=== PATIENT | male | born 1940 | race Caucasian/White ===

== ENCOUNTER 2021-04-17 13:19 | Observation (INO) ==
[2021-04-17] MEDS ORDERED: SODIUM CHLORIDE 0.9% 1,000 ML IV STA (13:31)
[2021-04-17] MEDS ORDERED: PANTOPRAZOLE 40 MG VIAL IV STA (13:31)
[2021-04-17 13:43] LABS: Basophils # 0.1 10*3/uL (0.0-0.2); Basophils % 0.8 % (0.0-0.8); Eosinophils # 0.1 10*3/uL (0.0-0.87); Eosinophils % 1.2 % (0.00-10.9); Hematocrit 44.7 VOL% (42.0-52.0); Hemoglobin 15.3 GM/DL (14.0-18.0); Immature Granulocytes % 0.2 %; Immature Granulocytes Absolute 0.02 #; Lymphocytes # 3.8 10*3/uL (1.4-4.0); Lymphocytes % 37.3 % (21.2-54.2); Mean Corpuscular HGB Conc 34.2 GM/DL (32-36); Mean Corpuscular Volume 90.9 FL (87-102); Mean Platelet Volume 10.5 FL (9.6-12.0); Neutrophils % 50.5 % (38.7-73.9); Platelet Count 179 T/CUMM (130-400); Red Blood Count 4.92 MC/CUMM (3.8-5.5); Red Cell Distribution Width 12.7 % (9.3-17.3); White Blood Count 10.3 T/CUMM (4-12)
[2021-04-17 13:53] LABS: INR 1.1; PT Patient Result 12.2 SECS (10.5-12.0)
[2021-04-17 14:09] LABS: Bilirubin,Total 0.7 MG/DL (0.20-1.00); Calcium 9.2 MG/DL (8.5-10.1); Osmolality,Calculated 278.4 MOS/KG (273-304); Potassium 3.3 MMOL/L (3.5-5.1)
[2021-04-17] MEDS ORDERED: POTASSIUM CHLORIDE 20 MEQ TABLET PO STA (15:05)
[2021-04-17] MEDS ORDERED: ONDANSETRON 4 MG/2 ML VIAL IV PRN (15:28)
[2021-04-17] MEDS ORDERED: GLUCAGON 1 MG VIAL IM PRN (15:28)
[2021-04-17] MEDS ORDERED: DEXTROSE 10% 250 ML BAG IV PRN (15:28)
[2021-04-17] MEDS: SODIUM CHLORIDE 0.9% 1,000 ML IV SCH (16:00)
[2021-04-17 16:56] LABS: Hemoglobin 13.7 GM/DL (14.0-18.0)
[2021-04-17] MEDS: PANTOPRAZOLE 40 MG TABLET PO SCH (20:54)
[2021-04-17 21:25] LABS: Hematocrit 38.6 VOL% (42.0-52.0); Hemoglobin 13.2 GM/DL (14.0-18.0)
[2021-04-18] MEDS: SODIUM CHLORIDE 0.9% 1,000 ML IV SCH (01:00)
[2021-04-18 05:23] LABS: Hematocrit 39.9 VOL% (42.0-52.0); Hemoglobin 13.4 GM/DL (14.0-18.0); Red Blood Count 4.36 MC/CUMM (3.8-5.5)
[2021-04-18 05:24] LABS: Basophils % 0.6 % (0.0-0.8); Eosinophils # 0.1 10*3/uL (0.0-0.87); Eosinophils % 1.7 % (0.00-10.9); Immature Granulocytes % 0.3 %; Immature Granulocytes Absolute 0.02 #; Lymphocytes # 1.9 10*3/uL (1.4-4.0); Lymphocytes % 27.3 % (21.2-54.2); Mean Corpuscular HGB Conc 33.6 GM/DL (32-36); Mean Corpuscular Volume 91.5 FL (87-102); Mean Platelet Volume 10.9 FL (9.6-12.0); Monocytes % 9.9 % (1.7-12.7); Neutrophils % 60.2 % (38.7-73.9); Platelet Count 155 T/CUMM (130-400); Red Cell Distribution Width 12.8 % (9.3-17.3)
[2021-04-18 05:45] LABS: Osmolality,Calculated 282.1 MOS/KG (273-304); Potassium 4.1 MMOL/L (3.5-5.1)
[2021-04-18 09:37] LABS: Hematocrit 37.1 VOL% (42.0-52.0); Hemoglobin 12.5 GM/DL (14.0-18.0)
[2021-04-18 13:46] VITALS: BP 128/74
[2021-04-18] MEDS: PANTOPRAZOLE 40 MG TABLET PO SCH (14:12)
[2021-04-18 15:07] LABS: Hematocrit 39.5 VOL% (42.0-52.0); Hemoglobin 13.2 GM/DL (14.0-18.0)
== END 2021-04-18 15:55 | disposition home or self-care (01) ==
LOC: N.ED 13:19 → N.TELEN 13:19
PROVIDERS: ADMIT Internal Medicine; ATTEND Internal Medicine